=== PATIENT | female | born 1995 | race Caucasian/White ===

== ENCOUNTER 2020-03-27 19:45 | Inpatient (IN) | payer OTHER ==
[~2020-03-27 19:45] MED LIST: Bupivacaine/Epinephrine 0.25% 30 ML VIAL ONE
[2020-03-27 21:04] VITALS: BMI 34.2
[2020-03-27] MEDS ORDERED: Carboprost 250 MCG/ML AMP IM PRN (22:04)
[2020-03-27] MEDS ORDERED: hydrALAZINE 20 MG/ML VIAL SLOW IVP PRN (22:04)
[2020-03-27] MEDS ORDERED: NS / Oxytocin 40 units/1000ml 1,000 ML IV PRN (22:04)
[2020-03-27] MEDS ORDERED: Misoprostol 200 MCG TAB PR PRN (22:04)
[2020-03-27] MEDS ORDERED: Promethazine HCl 25 MG/ML VIAL IM PRN (22:04)
[2020-03-27] MEDS ORDERED: HYDROcodone/Acetaminophen 5/325 mg Tablet PO PRN ×2 (22:04)
[2020-03-27] MEDS ORDERED: Ibuprofen 800 MG TAB PO PRN (22:04)
[2020-03-27] MEDS ORDERED: Acetaminophen 500 MG TAB PO PRN (22:04)
[2020-03-27] MEDS ORDERED: Lidocaine 1% (PF) 30 ML VIAL SC PRN (22:04)
[2020-03-27] MEDS ORDERED: Diphenoxylate HCl/Atropine Tablet PO PRN ×2 (22:04)
[2020-03-27] MEDS ORDERED: Ondansetron PF 4 MG/2 ML Vial IVP PRN (22:04)
[2020-03-27] MEDS ORDERED: Butorphanol Tartrate 1 MG/ML VIAL SLOW IVP PRN (22:04)
[2020-03-27] MEDS ORDERED: Docusate 100 MG CAP PO PRN (22:04)
[2020-03-27] MEDS ORDERED: NS w/ Oxytocin 10 units 500 ML IV SCH (22:15)
--- NOTE | 2020-03-27 22:24 | PDOC.LDHP ---
Labor and Delivery H&P Chief complaint: scheduled induction HPI: 24 y/o at 37 weeks with chronic HTN, elevated BP in clinic, Headache reported yesterday, and 2+ Protein today in clinic, and new lower extremity edema, suggestive of superimposed preeclampsia on top of CHTN. Current gestational age (weeks): 37 Due date: 04/15/20 Grav: 1 Para: 0 Current complications: hypertension, preeclampsia without severe features Abnormal US findings: No Current medications: pre- vitamins Previous surgical history: none Allergies/Adverse Reactions: Allergies Allergy/AdvReac Type Severity Reaction Status Date / Time No Known Allergies Allergy Verified 03/27/20 20:58 Social history: none - Physical Exam Vital signs reviewed and normal: yes General: NAD, resting Heart: RRR Lungs: CTAB Abdomen: gravid Extremeties: no edema FHT: category 1 - Assessment L&D Assessment: medically indicated induction - Plan Plan: admit to L&D, cervical ripening
[2020-03-27] MEDS: Misoprostol 100 MCG TAB VAG SCH (22:41)
[2020-03-27] MEDS: Lactated Ringer's 1,000 ML IV SCH (22:41)
[2020-03-27 22:42] LABS: Hemoglobin 11.7 g/dL (12.0-16.0); Mean Corpuscular HGB CONC 32.8 g/dL (32.0-36.0); Mean Corpuscular Hemoglobin 27.4 pg (27.0-31.0); Mean Corpuscular Volume 83.3 fL (78.0-98.0); Mean Platelet Volume 7.6 fL (7.4-10.4); Platelet Count 441 thou/uL (130-400); RBC Distribution Width 12.8 % (11.5-14.5); Red Blood Cell (RBC) Count 4.27 mill/uL (4.20-5.40); White Blood Cell (WBC) Count 11.2 thou/uL (4.8-10.8)
[2020-03-27 23:21] LABS: HBSAg Index 0.14 S/CO (0-0.99); Hep B Surf Ag Non-Reactive S/CO (NonReactive); Syphilis Antibody Nonreactive (Nonreactive); Syphilis Antibody Index 0.04 S/CO (<1.00 Non-Reactive)
[2020-03-27 23:55] LABS: ALT (SGPT) 28 U/L (8-55); AST (SGOT) 22 U/L (5-34); Albumin 3.5 g/dL (3.5-5.0); Alkaline Phosphatase 232 U/L (40-110); Anion Gap 14 mmol/L (10-20); BUN (Urea Nitrogen) 13 mg/dL (7.0-18.7); Bilirubin, Total Less than 0.2 mg/dL (0.2-1.2); Calc. Creatinine Clearance 153 mL/min (70-130); Calcium 9.6 mg/dL (7.8-10.44); Carbon Dioxide 19 mmol/L (22-29); Chloride 107 mmol/L (98-107); Estimated GFR-MDRD 81; Glucose 82 mg/dL (70-105); Potassium 4.4 mmol/L (3.5-5.1); Protein, Total 6.5 g/dL (6.0-8.3); Sodium 136 mmol/L (136-145)
[2020-03-28] MEDS: Misoprostol 100 MCG TAB VAG SCH ×3 (03:38→17:24)
[2020-03-28] MEDS: Lactated Ringer's 1,000 ML IV SCH ×2 (09:17→15:50)
[2020-03-29] MEDS ORDERED: Fentanyl 4 mcg/Bup 0.1% Cadd 100 ML ONE ×2 (00:46→07:45)
[2020-03-29] MEDS: Lactated Ringer's 1,000 ML IV SCH ×3 (01:13→08:52)
[2020-03-29] MEDS ORDERED: Naloxone HCl 0.4 mg/ml Vial IVP PRN ×2 (01:26)
[2020-03-29] MEDS ORDERED: Promethazine HCl 25 MG/ML VIAL IM PRN ×2 (01:26→14:19)
[2020-03-29] MEDS ORDERED: EPHEDRINE 25 MG/5 ML SYRINGE SLOW IVP PRN (01:26)
[2020-03-29] MEDS ORDERED: Lactated Ringer's 500 ML IV PRN (01:26)
[2020-03-29] MEDS ORDERED: diphenhydrAMINE 50 MG/ML VIAL IVP PRN (01:26)
[2020-03-29] MEDS ORDERED: Ondansetron PF 4 MG/2 ML Vial IVP PRN ×2 (01:26→14:19)
[2020-03-29] MEDS ORDERED: Acetaminophen 325 MG TAB PO PRN (01:26)
[2020-03-29] MEDS ORDERED: Fentanyl 4 mcg/Bupivacaine 0.1% Cassette 100 ML EPIDURAL SCH (01:30)
[2020-03-29] MEDS ORDERED: Communication Order-Pharmacy FS SCH (01:30)
[2020-03-29] MEDS: NS w/ Oxytocin 10 units 500 ML IV SCH ×2 (04:24→14:52)
[2020-03-29] MEDS: Misoprostol 100 MCG TAB PO SCH (04:24)
[2020-03-29] MEDS: Misoprostol 100 MCG TAB VAG SCH (04:25)
[2020-03-29] MEDS ORDERED: NS / Oxytocin 40 units/1000ml 1,000 ML ONE (09:43)
[2020-03-29] MEDS ORDERED: Lidocaine 1% (PF) 30 ML VIAL ONE (09:43)
[2020-03-29] MEDS ORDERED: Benzocaine-Menthol 82.5 ML CAN TOP PRN ×2 (13:26→14:19)
[2020-03-29] MEDS ORDERED: Bisacodyl 10 MG SUPP PR PRN ×2 (13:26→14:19)
[2020-03-29] MEDS ORDERED: Preparation H Ointment 28 GM TUBE PR PRN ×2 (13:26→14:19)
[2020-03-29] MEDS ORDERED: Adacel (T-DAP) 0.5 ML SYRINGE IM ONE (13:26)
[2020-03-29] MEDS ORDERED: Varicella virus, LIVE 0.5 ML VIAL SC ONE (13:26)
[2020-03-29] MEDS ORDERED: Measles/Mumps/Rubella 10 MCG/0.5 ML VIAL SC ONE ×2 (13:26→14:19)
[2020-03-29] MEDS ORDERED: Lanolin Ointment 7 GM TUBE TOP PRN ×2 (13:26→14:19)
[2020-03-29] MEDS ORDERED: Acetaminophen/Codeine 30-300mg Tablet PO PRN ×2 (13:26)
[2020-03-29] MEDS ORDERED: Milk Of Magnesia 30 ML UDCUP PO PRN ×2 (13:26→14:19)
[2020-03-29] MEDS ORDERED: hydrALAZINE 20 MG/ML VIAL SLOW IVP PRN ×2 (13:26→14:19)
--- NOTE | 2020-03-29 13:29 | PDOC.BPN ---
- Brief Progress Note Asked to place PP orders and transfer orders.
[2020-03-29] MEDS ORDERED: NS / Oxytocin 40 units/1000ml 1,000 ML IV SCH ×2 (13:30→14:19)
[2020-03-29] MEDS ORDERED: Ibuprofen 800 MG TAB PO SCH (14:00)
[2020-03-29] MEDS ORDERED: Misoprostol 200 MCG TAB VAG PRN (14:19)
[2020-03-29] MEDS ORDERED: diphenhydrAMINE 25 MG CAP PO PRN (14:19)
[2020-03-29] MEDS ORDERED: Zolpidem Tartrate 5 MG TAB PO PRN (14:19)
[2020-03-29] MEDS ORDERED: HYDROcodone/Acetaminophen 5/325 mg Tablet PO PRN ×2 (14:19)
[2020-03-29] MEDS: Ferrous Sulfate 325 MG TAB PO SCH (14:55)
[2020-03-29] MEDS ORDERED: Ferrous Sulfate 325 MG TAB PO SCH (17:00)
[2020-03-29] MEDS ORDERED: Docusate Calcium (SURFAK) 240 MG CAP PO SCH (21:00)
[2020-03-29] MEDS: Ibuprofen 800 MG TAB PO SCH (21:47)
[2020-03-29] MEDS: Docusate Calcium (SURFAK) 240 MG CAP PO SCH (21:47)
[2020-03-30] MEDS: Ibuprofen 800 MG TAB PO SCH ×3 (05:52→22:06)
[2020-03-30] MEDS: Ferrous Sulfate 325 MG TAB PO SCH ×2 (07:17→11:40)
[2020-03-30] MEDS: Prenatal Vitamin 1 TAB PO SCH (08:38)
[2020-03-30] MEDS: Docusate Calcium (SURFAK) 240 MG CAP PO SCH ×2 (08:38→22:06)
[2020-03-30] MEDS ORDERED: Prenatal Vitamin 1 TAB PO SCH (09:00)
[2020-03-30 09:10] LABS: Hemoglobin 10.8 g/dL (12.0-16.0); Mean Corpuscular Hemoglobin 28.6 pg (27.0-31.0); Mean Corpuscular Volume 86.7 fL (78.0-98.0); Mean Platelet Volume 7.3 fL (7.4-10.4); Platelet Count 325 thou/uL (130-400); RBC Distribution Width 12.9 % (11.5-14.5); Red Blood Cell (RBC) Count 3.76 mill/uL (4.20-5.40); White Blood Cell (WBC) Count 10.9 thou/uL (4.8-10.8)
--- NOTE | 2020-03-30 18:03 | PDOC.PP ---
Post Progress Note Post Day #: 1 PO intake tolerated: yes Flatus: yes Ambulation: yes Vital Signs (12 hours) Temp Pulse Resp BP Pulse Ox 03/30/20 12:03 98.5 F 88 20 127/81 03/30/20 08:16 98.0 F 75 20 123/75 98 Weight Weight 212 lb - Physical Examination General: NAD Cardiovascular: no m/r/g, RRR Respiratory: clear to auscultation bilaterally, non-labored breathing Abdominal: + bowel sounds, lochia, no distention Extremities: negative homans (B) Neurological: no gross focal deficits Psychiatric: A&Ox3, normal affect Result Diagrams: 03/30/20 08:57 03/27/20 22:32 Additional Labs: Post Labs Blood Type A POSITIVE 03/27/20 23:49 Hep Bs Antigen Non-Reactive S/CO (NonReactive) 03/27/20 22:31
--- NOTE | 2020-03-31 02:00 | DN ---
DATE OF PROCEDURE: 03/29/2020 TIME OF SERVICE: At 11:55 [place] Daylight Savings Time. PREOPERATIVE DIAGNOSIS: Intrauterine at 37 weeks with a diagnosis of gestational hypertension. POSTOPERATIVE DIAGNOSIS: Intrauterine at 37 weeks with a diagnosis of gestational hypertension. PROCEDURE: Spontaneous vaginal delivery over a small second-degree laceration of the perineum. FINDINGS: Viable female infant weighing 2996 g or 6 pounds 10 ounces with Apgars of seven and nine. QUANTITATIVE BLOOD LOSS: 75 mL. COMPLICATIONS: None. PROCEDURE IN DETAIL: The patient presented to [facility] where she was admitted to the labor and delivery service. The patient underwent a normal and uneventful labor with normal cervical dilatation until she was found to be completely dilated. She was then allowed to push and was able to bring the baby down and delivered the baby in a vertex presentation without difficulties. Once the head delivered in occiput anterior position, the shoulders followed spontaneously along with the rest of the baby's body. Once out the baby's mouth and nose were bulb suctioned. The cord was clamped and cut and baby was handed to waiting attendants. Cord blood was collected. Gentle fundal massage was performed and the placenta delivered intact without problems. Hemostasis was assured. Quantitative blood loss was calculated. Inspection of the cervix, vaginal vault, and perineum did not reveal any lacerations needing suturing. Once again, hemostasis was within normal limits and the patient was allowed to recover in the labor and delivery room. Baby went to nursery. Job ID: [id number]
[2020-03-31] MEDS: Ibuprofen 800 MG TAB PO SCH ×2 (05:40→14:14)
[2020-03-31] MEDS: Ferrous Sulfate 325 MG TAB PO SCH (08:11)
[2020-03-31] MEDS: Prenatal Vitamin 1 TAB PO SCH (10:22)
[2020-03-31] MEDS: Docusate Calcium (SURFAK) 240 MG CAP PO SCH (10:22)
[2020-03-31 11:51] VITALS: BP 145/94; TEMP 98.3
== END 2020-03-31 14:51 | disposition home or self-care (01) | DRG 807 ==
LOC: L&D 20:04 → 3SE 03-29 13:57
PROVIDERS: ADMIT Obstetrics & Gynecology; ATTEND Obstetrics & Gynecology
PROC: 10E0XZZ Delivery of Products of Conception, External Approach (ICD-10-PCS; principal; 2020-03-29)
PROC: 0KQM0ZZ Repair Perineum Muscle, Open Approach (ICD-10-PCS; 2020-03-29)
DX: O11.4 Pre-existing hypertension with pre-eclampsia, complicating childbirth (principal); Z37.0 Single live birth; Z3A.38 38 weeks gestation of pregnancy; O70.1 Second degree perineal laceration during delivery
CPT/HCPCS: 36415; 51702; 80053; 85027; 86780; 86850; 86900; 86901; 87340; J2001; J2405; J2590